=== PATIENT | female | born 1990 | race Caucasian/White ===

== ENCOUNTER → 2016-09-30 | Outpatient (CLI) | payer BC | END | disposition home or self-care (01) | LOC: C.PAPS 14:03 | PROVIDERS: ATTEND Physician Assistant | DX: Z01.419 Encounter for gynecological examination (general) (routine) without abnormal findings (principal) ==

== ENCOUNTER → 2017-07-08 | Outpatient (CLI) | payer OTHER ==
--- NOTE | 2017-07-08 10:46 | DIAGNOSTIC IMAGING REPORT ---
ULTRASOUND OF THE PAROTID GLANDS CLINICAL HISTORY: Sialoadenitis. COMPARISON STUDY: No priors. FINDINGS: Real-time, grayscale, and color flow sonography of the parotid glands is performed. The parotid glands are normal in size and homogeneous in echotexture. No hyperemia is seen in either gland on color imaging. There is no sonographic evidence of sialolithiasis. Subcentimeter intraparotid lymph nodes are incidentally noted. IMPRESSION: Unremarkable sonographic appearance of the parotid glands. Electronically signed by: Jonny Gardner M.D. 07/08/2017 10:45 AM Dictated Date/Time: 07/08/2017 10:44 AM
== END | disposition home or self-care (01) ==
LOC: C.ULTR 09:36
PROVIDERS: ATTEND Student in an Organized Health Care Education/Training Program
DX: K11.20 Sialoadenitis, unspecified (principal)

== ENCOUNTER → 2017-07-19 | Outpatient (CLI) | payer OTHER ==
[~2017-07-19] MED LIST: OPTIRAY 320 IV PRN
--- NOTE | 2017-07-19 08:49 | DIAGNOSTIC IMAGING REPORT ---
SOFT TISSUE NECK WITH CLINICAL HISTORY: LT FACIAL SWELLING pain. Edema. TECHNIQUE: Transaxial acquisition with multi axial reformatted images COMPARISON STUDY: Soft tissue neck ultrasound 07/08/2017 FINDINGS: All major salivary glands are unremarkable. No evidence for mass or collection. Enhancement characteristics are uniform. No significant cervical adenopathy. Hypopharynx glottic and subglottic regions are unremarkable. The epiglottis is normal. No abnormal calcifications. Musculature of the soft tissue neck appear unremarkable rib there is no evidence for airway compromise. IMPRESSION: Negative study The above report was generated using voice recognition software. It may contain grammatical, syntax or spelling errors. Electronically signed by: Ady Acevedo M.D. 07/19/2017 8:47 AM Dictated Date/Time: 07/19/2017 8:43 AM
== END | disposition home or self-care (01) ==
LOC: C.CTS 07:41
PROVIDERS: ATTEND Family Medicine
DX: R22.0 Localized swelling, mass and lump, head (principal)

== ENCOUNTER → 2017-12-06 | Outpatient (CLI) | payer OTHER | END | disposition home or self-care (01) | LOC: C.LABBFT 10:53 | PROVIDERS: ATTEND Internal Medicine | DX: R53.83 Other fatigue (principal); N92.0 Excessive and frequent menstruation with regular cycle; D64.9 Anemia, unspecified ==